=== PATIENT | male | born 1985 | race Caucasian/White ===

== ENCOUNTER 2018-04-09 21:07 | Emergency (ER) | payer OTHER ==
[~2018-04-09] VITALS: Ht 180.3 cm; Wt 89.8 kg
--- NOTE | 2018-04-09 21:14 | ED.ADGEN ---
Adult General Chief Complaint Chief Complaint "... All of sudden... 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 No appreciable adenopathy. No history immunosuppression. No history of recent travel. No history of significant ill contact. Patient up-to-date with vaccinations. No history of trauma. No dental decay appreciated. Pain and swelling appears to be localized to the right lower some of mandibular glands. Review of Systems Review of Systems Constitutional: Denies fever or chills [] Eyes: Denies change in visual acuity, redness, or eye pain [] HENT: Denies nasal congestion or sore throat [] Rt. submandibular pain and swelling. Respiratory: Denies cough or shortness of breath [] Cardiovascular: No additional information not addressed in HPI [] GI: Denies abdominal pain, nausea, vomiting, bloody stools or diarrhea [] : Denies dysuria or hematuria [] Musculoskeletal: Denies back pain or joint pain [] Integument: Denies rash or skin lesions [] Neurologic: Denies headache, focal weakness or sensory changes [] Endocrine: Denies polyuria or polydipsia [] All other systems were reviewed and found to be within normal limits, except as documented in this note. Family History Family History Noncontributory Current Medications Current Medications Current Medications Medications (Trade) Dose Ordered Sig/[facility] Start Time Stop Time Status Last Admin Dose Admin Amoxicillin 1 startpack 1X ONCE 04/09/18 22:30 04/09/18 22:31 DC 04/09/18 22:15 1 STARTPACK Amoxicillin (Amoxil) 500 mg 1X ONCE 04/09/18 22:00 04/09/18 22:01 DC 04/09/18 22:12 500 MG Hydrocodone Bitartrate/ Ibuprofen (Vicoprofen 7.5-200) 2 tab 1X ONCE 04/09/18 22:30 04/09/18 22:31 DC 04/09/18 22:15 2 TAB Penicillin V Potassium (Starter Pack - Veetid) 1 startpack 1X ONCE 04/09/18 22:30 04/09/18 22:31 DC Allergies Allergies Allergies Coded Allergies Type Severity Reaction Last Updated Verified No Known Drug Allergies 04/09/18 No Physical Exam Physical Exam Constitutional: Well developed, well nourished, no acute distress, non-toxic appearance. [] HENT: Normocephalic, atraumatic, bilateral external ears normal, oropharynx moist, no oral exudates, nose normal. []Findings of right submandibular edema and tenderness Eyes: PERRLA, EOMI, conjunctiva normal, no discharge. [] Neck: Normal range of motion, no tenderness, supple, no stridor. [] Cardiovascular:Heart rate regular rhythm, no murmur [] Lungs & Thorax: Bilateral breath sounds clear to auscultation [] Abdomen: Bowel sounds normal, soft, no tenderness, no masses, no pulsatile masses. [] Skin: Warm, dry, no erythema, no rash. [] Back: No tenderness, no CVA tenderness. [] Extremities: No tenderness, no cyanosis, no clubbing, ROM intact, no edema. [] Neurologic: Alert and oriented X 3, normal motor function, normal sensory function, no focal deficits noted. [] Psychologic: Affect normal, judgement normal, mood normal. [] Current Patient Data Vital Signs Vital Signs Date Time Temp Pulse Resp B/P (MAP) Pulse Ox O2 Delivery O2 Flow Rate FiO2 04/09/18 22:29 56 20 121/62 (81) 96 Room Air 04/09/18 21:10 97.8 EKG EKG [] Radiology/Procedures Radiology/Procedures [] Course & Med Decision Making Course & Med Decision Making Pertinent Labs and Imaging studies reviewed. (See chart for details). Take amoxicillin 500 mg 3 times a day. Take Tylenol or ibuprofen for pain. Use normal saline warm mouth rinses or Listerine 4 times a day. Use*candies or lemon and h[place]apai juice to increase saliva flow. Massage area 4 times a day. Follow-up primary care. Return if any concerns. [] Final Impression Final Impression 1. Submandibular edema- Rt. []/ obstruction versus infection Dragon Disclaimer Dragon Disclaimer This electronic medical record was generated, in whole or in part, using a voice recognition dictation system. CONNOR CORNELL MD April 09, 2018 21:14
[2018-04-09] MEDS ORDERED: AMOX-260 PO (21:55)
[2018-04-09] MEDS ORDERED: IBUP400T18 PO (21:55)
[2018-04-09] MEDS ORDERED: HYDR-79 PO (21:55)
[2018-04-09] MEDS ORDERED: AMOXICILLIN 250 MG CAPSULE PO ONE (22:00)
[2018-04-09] MEDS ORDERED: AMOXICILLIN 250MG 3CAPSULE STARTPACK. PO ONE ×2 (22:06→22:30)
[2018-04-09] MEDS ORDERED: HYDROcodon/IBUPROFEN 7.5/200MG 1 TAB TABLET ONE (22:07)
[2018-04-09 22:29] VITALS: BP 121/62
[2018-04-09] MEDS ORDERED: HYDROcodon/IBUPROFEN 7.5/200MG 1 TAB TABLET PO ONE (22:30)
[2018-04-09] MEDS ORDERED: PENICILLIN V K PO ONE (22:30)
== END 2018-04-09 22:20 | disposition home or self-care (01) ==
LOC: ER 21:07
DX: R22.0 Localized swelling, mass and lump, head (principal); R68.84 Jaw pain
CPT/HCPCS: 99284